=== PATIENT | female | born 1955 | race Caucasian/White ===

== ENCOUNTER 2017-03-12 04:59 | Inpatient (IN) | payer BC ==
[2017-03-07 16:45] LABS: HEMATOCRIT 36.9 % (36.0-48.0); HEMOGLOBIN 11.7 g/dL (12.0-16.0)
[2017-03-07 16:57] LABS: BUN (BLOOD UREA NITROGEN) 10 MG/DL (6-23); CALCIUM, SERUM 9.3 MG/DL (8.5-10.4); CHLORIDE, SERUM 105 MMOL/L (96-112); CO2 (CARBON DIOXIDE) 29 MMOL/L (24-34); CREATININE 0.74 MG/DL (0.55-1.02); GFR AFRICAN AMERICAN 102 ML/MIN (>=60); GFR NON AFRICAN AMERICAN 88 ML/MIN (>=60); GLUCOSE, SERUM 97 MG/DL (60-99); POTASSIUM, SERUM 3.9 MMOL/L (3.5-5.3); SODIUM, SERUM 140 MMOL/L (135-148)
--- NOTE | ~2017-03-12 | PREOPHP ---
PreOp History and Physical [facility] [address] [place]. [address] NAME: CATHI PRIETO : 57 STATUS : ADM IN [facility]#: [id number] AGE: 61 ADM/REG DATE : 03/12/17 MR#: [id number] REPORT SERV DATE: 03/12/17 DICTATED BY: FRANCO HENRY DATE: 03/12/17 REPORT STATUS : Draft TRANSCRIBED BY: MODAlli DATE: 03/12/17 CHIEF COMPLAINT: Back pain, left hip, leg pain. HISTORY OF PRESENT ILLNESS: A 61-year-old obese female with back pain, left hip and leg pain for long-standing duration. The patient has had lots of extensive conservative care with time, medication, therapy, injections, etc., nothing that has helped. She has plain x-ray evidence of disk degeneration at L4-L5 and L5-S1, but MRI shows a combination of disk herniation and foraminal stenosis secondary to ligamentum flavum and facet hypertrophy, but she has compression on the exiting L5 nerve root as well as traversing S1 nerve root on the left at L5-S1. She will require complete facetectomy on the left at L5-S1 to decompress both the nerves. This will create instability, thus the need for re-stabilization, which will be carried out through a transforaminal diskectomy, interbody cage insertion, posterolateral fusion with allograft, autograft, and finally posterior stabilization with percutaneous instrumentation. Prior to surgery, risks, benefits, alternatives, and expectations have been explained in detail. Consent form has been signed. The patient was identified today in the preop holding. All questions were answered. Once again, the patient voiced understanding the risks, willingness to accept those, and wanted to proceed. PAST MEDICAL HISTORY: Exogenous obesity, osteoarthritis, COPD, diabetes mellitus type 2, gastroesophageal reflux disease. PAST SURGICAL HISTORY: She has had a left total knee arthroplasty and lumpectomy of the breast and abdominal hysterectomy. CURRENT MEDICATIONS: Lyrica, metformin, Mirapex, Protonix. ALLERGIES: NONE. SOCIAL HISTORY: She is . Has stopped smoking several months ago, but does have approximately forty year pack history. She rarely uses alcohol. She is still working. FAMILY HISTORY: Her mother had coronary artery disease, rheumatoid arthritis, hypertensive disorder. One sister had rheumatoid arthritis and hypertensive disorder. REVIEW OF SYSTEMS: Negative except she does have some chronic dyspnea secondary to her prior smoking history. PHYSICAL EXAMINATION: VITAL SIGNS: 5 feet 4 inches, 250 pounds, BMI is 44. GENERAL: She is alert, cooperative, well oriented. Ambulates independently. Does appear to be in acute painful distress. HEENT: Grossly normal. LUNGS: Clear to auscultation. HEART: Regular and rhythmic. ABDOMEN: Soft with good bowel sounds. No peritoneal signs are noted. PreOp History and Physical [address] [address] NAME: CATHI PRIETO : 57 STATUS : ADM [facility]#: [id number] AGE: 61 ADM/REG DATE : 03/12/17 MR#: [id number] REPORT SERV DATE: 03/12/17 DICTATED BY: FRANCO HENRY DATE: 03/12/17 REPORT STATUS : Draft TRANSCRIBED BY: RIZWAN DATE: 03/12/17 MUSCULOSKELETAL: The spine itself has no deformities. She has limited range of motion due to pain. She has a positive straight leg raising on the left at 40 degrees. She has negative on the right. Her patella reflex is 1/4, bilateral Achilles reflexes are absent on the left and 1/4 on the right. She has some very mild decrease in vibratory sensation in the feet. She has some decreased light touch below from the mid legs distally. She cannot heel walk or toe walk. Mike signs are negative. Fabere signs are negative. Toes are downgoing. No ankle clonus is found. Orthopedically, she has no pain with moving hips, knees, or ankles. There are good pulses in all four extremities. No abnormal skin lesions found. ASSESSMENT AND RECOMMENDATIONS: As listed above. /RIZWAN Franco Henry D.O. / [id number] CC: Molly Harris M.D.
--- NOTE | ~2017-03-12 | OP ---
Record Of Operation [facility] [address] [place]. [address] NAME: CATHI PRIETO : 57 STATUS : ADM IN PAT#: [id number] AGE: 61 ADM/REG DATE : 03/12/17 MR#: [id number] REPORT SERV DATE: 03/13/17 DICTATED BY: HITESH HENRY DATE: 03/12/17 REPORT STATUS : Draft TRANSCRIBED BY: MODL DATE: 03/12/17 DATE OF PROCEDURE: PREOPERATIVE DIAGNOSIS: Severe spinal stenosis requiring facetectomy, left L5-S1. POSTOPERATIVE DIAGNOSIS: Severe spinal stenosis requiring facetectomy, left L5-S1. PROCEDURES: 1. Microscopic navigation-assisted surgery. 2. Left L5-S1 hemilaminectomy, foraminotomy, and facetectomy. 3. Transforaminal diskectomy. 4. Anterior interbody cage insertion. 5. Posterolateral interbody fusion with local bone graft and allograft. 6. Posterior percutaneous Voyager instrumentation, L5-S1. SURGEON: Hitesh Henry D.O. POWER TOOL REPAIRER: Aquilino Barrett. ANESTHESIA: General. BLOOD LOSS: 100 mL. INDICATIONS FOR SURGERY: Indications for surgery and risks were explained. They are listed in the last office note as well as the history and physical. See that for detail. DESCRIPTION OF PROCEDURE: Antibiotic prophylaxis was given. Neurophysiology monitoring leads were inserted. The patient was brought to the operative suite. General anesthetic including endotracheal intubation was administered. Parkinson catheter was inserted with sterile technique. The patient was placed prone on a Ryan spine frame. Bony prominences were carefully padded. Thoracolumbar spine was scrubbed with Hibiclens solution. DuraPrep was painted. Sterile drapes applied. Because of the complexity of surgery, the need to identify correct level of surgery intraoperatively as well as desire to carry out the safest most precise dissection, I felt that intraoperative navigation was mandatory. A small stab wound was carried out at the right posterior superior iliac spine. A percutaneous pin with navigational frame attached was inserted in the PSIS. Intraoperative CT scan with O-arm was obtained, CT information was used to register the navigational system. With navigational assistance, I identified the L5-S1 level. On the left side lateral to the facet joint, a 3-cm skin incision was carried out and a blunt navigated probe placed through the fascia and muscle, and docked over the facet joint. Muscle dilator was inserted followed by placement of a tubular retractor attached to an arm mount table. The microscope Record Of Operation [facility] [address] [place]. [address] NAME: CATHI PRIETO : 57 STATUS : ADM IN PAT#: [id number] AGE: 61 ADM/REG DATE : 03/12/17 MR#: [id number] REPORT SERV DATE: 03/13/17 DICTATED BY: HITESH HENRY DATE: 03/12/17 REPORT STATUS : Draft TRANSCRIBED BY: RIZWAN DATE: 03/12/17 was sterilely draped and used throughout the remainder of the procedure. With navigational assistance, I identified the top of the pedicle of S1 and the inferior pedicle of L5. I removed from lateral to medial the entire superior articular process of S1 down to the top of the pedicle. I removed the inferior articular process of L5, the lamina, and the pars interarticularis of L5. The local bone graft was morcellized and later used for the fusion. There was ligamentum flavum and facet hypertrophy resulting in marked compression of the exiting L5 nerve root. There was moderate to severe compression of the traversing S1 nerve root as well. After the transforaminal diskectomy, Intradiscal trial was carried out. The wound was irrigated. The cage was inserted through the transforaminal approach against the anterior longitudinal ligament. A posterolateral interbody fusion was carried out with local bone graft, allograft, and an extra small dosage of bone protein. The retractor was removed. The wound was cleaned. There was no bleeding etc. Next, I carried out a 3-cm incision on the right side just lateral to the facet joint to match that on the left. I then used a Simparel percutaneous pedicle tap and screw launch operator. I tapped the pedicles of L5 and S1 bilaterally. Polyaxial screws were then inserted with screw extenders. A 40-mm contoured lordotic captured breana was inserted through the top portion of the screw extenders, reduced into the tulip of the pedicle screws, and the set screws inserted and tightened with a torque wrench providing rigid stability. Screw extenders were removed. Intraoperative CT scan with O-arm repeated showing excellent position of all implants. After final irrigation, the fascial opening was closed with a single interrupted #1 Vicryl suture. The subcutaneous tissue was closed with 2-0 Vicryl suture, 2-0 vertical mattress nylon suture used for skin closure. Sterile dressings applied. The patient was awakened, extubated, and taken to recovery room in satisfactory condition having tolerated the procedure well. Sponge, needle, and instrument counts were correct. No intraoperative complications noted. CHRISTOS/RIZWAN Hitesh Henry D.O. / [id number] CC: Hitesh Henry D.O.
[~2017-03-12 04:59] MED LIST: ATROVENT NEBULIZER; C25 PO; CLARIT10 PO; FLUTICASONE; GLUMETZA500 MG PO; L40 PO; LYRICA75 PO; NORCO1 TA1 PO; OXAPROZIN600 MG PO; PCET PO; PROZAC PO; SPIRIVA RESPIMAT INH; ZIAC10 PO; [UNRECOGNIZED DRUG - OTHER] PO
[2017-03-12 11:49] LABS: BASOPHILS 0.1 %; BASOPHILS ABSOLUTE 0.02 10/3/uL (0.0-0.16); EOSINOPHILS 1.9 %; EOSINOPHILS ABSOLUTE 0.26 10/3/uL (0.0-0.53); HEMOGLOBIN 11.2 g/dL (12.0-16.0); IMMATURE GRANULOCYTES 0.9 %; IMMATURE GRANULOCYTES ABSOLUTE 0.12 10/3/uL (0.0-0.11); LYMPHOCYTES 19.4 %; LYMPHOCYTES ABSOLUTE 2.67 10/3/uL (0.67-4.30); MEAN CORPUSCULAR HEMOGLOB 26.1 pg (26.0-34.0); MEAN CORPUSCULAR VOLUME 81.6 fL (80-100); MEAN PLATELET VOLUME 9.9 fL (9.2-13.0); MONOCYTES ABSOLUTE 0.41 10/3/uL (0.21-1.20); NEUTROPHILS 74.7 %; NEUTROPHILS ABSOLUTE 10.27 10/3/uL (2.02-8.40); PLATELET COUNT 288 10/3/uL (150-400); RED CELL COUNT 4.29 10/6/uL (4.0-5.6); WHITE BLOOD CELLS 13.8 10/3/uL (4.5-10.5)
[2017-03-12 11:50] LABS: MANUAL DIFF NO %
[2017-03-12 12:00] LABS: BUN (BLOOD UREA NITROGEN) 10 MG/DL (6-23); CHLORIDE, SERUM 105 MMOL/L (96-112); CO2 (CARBON DIOXIDE) 27 MMOL/L (24-34); CREATININE 0.87 MG/DL (0.55-1.02); GFR AFRICAN AMERICAN 84 ML/MIN (>=60); GFR NON AFRICAN AMERICAN 72 ML/MIN (>=60); POTASSIUM, SERUM 3.9 MMOL/L (3.5-5.3); SODIUM, SERUM 142 MMOL/L (135-148)
[2017-03-12 12:01] LABS: CALCIUM, SERUM 8.2 MG/DL (8.5-10.4); GLUCOSE, SERUM 175 MG/DL (60-99)
[2017-03-13 04:25] LABS: BASOPHILS 0.1 %; BASOPHILS ABSOLUTE 0.01 10/3/uL (0.0-0.16); EOSINOPHILS 0 %; HEMATOCRIT 32.2 % (36.0-48.0); HEMOGLOBIN 10.1 g/dL (12.0-16.0); IMMATURE GRANULOCYTES 0.3 %; IMMATURE GRANULOCYTES ABSOLUTE 0.05 10/3/uL (0.0-0.11); LYMPHOCYTES ABSOLUTE 1.42 10/3/uL (0.67-4.30); MANUAL DIFF NO %; MEAN CORPUS HGB CONC 31.4 g/dL (32.0-36.0); MEAN PLATELET VOLUME 10.3 fL (9.2-13.0); MONOCYTES 7.8 %; MONOCYTES ABSOLUTE 1.23 10/3/uL (0.21-1.20); NEUTROPHILS 82.8 %; NEUTROPHILS ABSOLUTE 13.13 10/3/uL (2.02-8.40); PLATELET COUNT 291 10/3/uL (150-400); RBC DISTRIBUTION WIDTH 14.1 % (12.0-16.0); RED CELL COUNT 3.88 10/6/uL (4.0-5.6); WHITE BLOOD CELLS 15.8 10/3/uL (4.5-10.5)
[2017-03-13 04:37] LABS: BUN (BLOOD UREA NITROGEN) 9 MG/DL (6-23); CALCIUM, SERUM 8.8 MG/DL (8.5-10.4); CHLORIDE, SERUM 105 MMOL/L (96-112); CO2 (CARBON DIOXIDE) 30 MMOL/L (24-34); CREATININE 0.83 MG/DL (0.55-1.02); GFR AFRICAN AMERICAN 89 ML/MIN (>=60); GFR NON AFRICAN AMERICAN 77 ML/MIN (>=60); GLUCOSE, SERUM 144 MG/DL (60-99); SODIUM, SERUM 143 MMOL/L (135-148)
[2017-03-13 04:58] LABS: POTASSIUM, SERUM 4.7 MMOL/L (3.5-5.3)
[2017-03-14] MEDS ORDERED: NEUR100 PO (11:53)
[2017-03-14] MEDS ORDERED: OXYCOD PO (11:54)
[2017-03-14] MEDS ORDERED: METHOC750B PO (11:55)
== END 2017-03-14 16:33 | disposition home or self-care (01) | DRG 460 ==
LOC: SDC/OF 04:59 → PACU 11:18 → 3SO 13:58
PROVIDERS: Orthopaedic Surgery Orthopaedic Surgery of the Spine
PROC: 0SG30AJ Fusion of Lumbosacral Joint with Interbody Fusion Device, Posterior Approach, Anterior Column, Open Approach (ICD-10-PCS; principal; 2017-03-12 07:00)
PROC: 0ST40ZZ Resection of Lumbosacral Disc, Open Approach (ICD-10-PCS; 2017-03-12 07:00)
PROC: 0SG3071 Fusion of Lumbosacral Joint with Autologous Tissue Substitute, Posterior Approach, Posterior Column, Open Approach (ICD-10-PCS; 2017-03-12 07:00)
PROC: 4A11X4G Monitoring of Peripheral Nervous Electrical Activity, Intraoperative, External Approach (ICD-10-PCS; 2017-03-12 07:00)
DX: M51.37 Other intervertebral disc degeneration, lumbosacral region (principal); Z68.41 Body mass index [BMI] 40.0-44.9, adult; I10 Essential (primary) hypertension; E11.9 Type 2 diabetes mellitus without complications; F17.210 Nicotine dependence, cigarettes, uncomplicated; K21.9 Gastro-esophageal reflux disease without esophagitis; F41.9 Anxiety disorder, unspecified; J44.9 Chronic obstructive pulmonary disease, unspecified; E66.9 Obesity, unspecified
CPT/HCPCS: 36415; 80048; 82962; 85014; 85018; 85025; 86850; 86900; 86901; 87641; 88304; 88311; 93005; 94640; 97116-GP; 97161-GP; A9270-GY; C1713; J0330; J0690; J1030; J1644; J2250; J2405; J2710; J2765; J3010